=== PATIENT | male | born 1935 | race Caucasian/White ===

== ENCOUNTER → 2017-12-13 | Outpatient (CLI) | payer OTHER ==
[~2017-12-13] MED LIST: ATORVASTATIN CA40 MG PO; AUGMENTIN 875875 MG PO; CARDIZEM CD120 MG PO; CARDIZEM CD240 MG PO; CARVEDILOL12.5 MG PO; COMBIVENT INH; COMBIVENT RESPIM4 GM INH; COUMADIN 1MG TAB1 M1 PO; COUMADIN 5 MG TA5 M1 PO; DIGOXIN250 MCG PO; GLYBURIDE 2.52.5 MG PO; LISINOPRIL10 MG PO; LOPRESSOR25 PO; METFORMIN HCL500 MG PO; PACERONE 200 M200 M1 PO; PRADAXA150 MG PO; PRILOSEC20 MG PO; PROAIR HFA8.5 GM INH; SORINE 80 MG TA80 M1 PO; SOTALOL 120 MG120 M1 PO; TIKOSYN.25 PO
== END ==
LOC: M.RAD 14:01
DX: M19.071 Primary osteoarthritis, right ankle and foot (principal); L03.115 Cellulitis of right lower limb; I10 Essential (primary) hypertension; E78.00 Pure hypercholesterolemia, unspecified

== ENCOUNTER 2019-12-11 14:33 | Emergency (ER) | payer MEDICARE ==
[~2019-12-11] VITALS: Ht 190.5 cm; Wt 90.7 kg
[2019-12-11] MEDS ORDERED: LANOXIN 0.25M0.25 M1 PO (15:01)
[2019-12-11] MEDS ORDERED: LOPRESSOR50 MG PO (15:01)
[2019-12-11] MEDS ORDERED: LIPITOR40 MG PO (15:02)
[2019-12-11 15:32] LABS: HEMATOCRIT 45.5 % (42.0-52.0); HEMOGLOBIN 15.9 gm/dL (14.0-18.0); MCH 33.7 pg (26.0-34.0); MCHC 34.9 g/dL (28.0-37.0); MCV 96.6 fL (80.0-100.0); MPV 7.9 fl. (7.2-11.1); NUCLEATED RBCS 0 /100WBC; PLATELET COUNT* 245 thou/uL (150-400); RBC 4.71 mil/uL (4.50-6.00); RDW-CV 14.3 % (10.5-14.5); WBC 9.5 thou/uL (4.0-11.0)
[2019-12-11 15:45] LABS: CALCIUM 9.1 mg/dL (8.5-10.1); CREATININE 1.3 mg/dL (0.6-1.3); POTASSIUM 4.8 mmol/L (3.5-5.1)
[2019-12-11 15:51] LABS: ALBUMIN 3.2 g/dL (3.4-5.0); TOTAL BILIRUBIN 0.5 mg/dL (<0.1-1.0); TOTAL PROTEIN 6.5 g/dL (6.4-8.2)
[2019-12-11 16:09] LABS: ABSOLUTE EOSINOPHILS 0.1 thou/uL (0.0-0.7); ABSOLUTE LYMPHOCYTES 1.8 thou/uL (0.8-5.3); ABSOLUTE MONOCYTES 0.9 thou/uL (0.0-1.2); ABSOLUTE NEUTROPHILS 6.7 thou/uL (1.6-8.1); ATYPICAL LYMPHS 2 %
[2019-12-11 16:10] LABS: PLATELET ESTIMATE ADEQUATE
[2019-12-11 17:26] LABS: URINE BILIRUBIN NEGATIVE (Negative); URINE BLOOD 3+ (Negative); URINE CLARITY CLEAR; URINE COLOR YELLOW; URINE GLUCOSE-RANDOM NEGATIVE (Negative); URINE KETONES NEGATIVE (Negative); URINE NITRITE-REFLEX NEGATIVE (Negative); URINE PROTEIN NEGATIVE (Negative); URINE UROBILINOGEN 0.2 E.U./dl (0.2-1.0)
[2019-12-11 17:27] LABS: URINE LEUKOCYTES-REFLEX 2+ (Negative)
[2019-12-11 17:34] LABS: HYALINE CASTS >10 Many /LPF (None Seen); URINE RBC >20 Many /HPF (0-2)
[2019-12-11 17:36] LABS: BACTERIA-REFLEX 1-9 Few /HPF (None Seen); CALCIUM OXALATE 0-3 Few /LPF (None Seen); MUCUS None Seen strn/LPF (None Seen); SQUAMOUS NONE SEEN /LPF (0-3)
[2019-12-11] MEDS ORDERED: DOXYCYCLINE 10100 MG PO (17:59)
[2019-12-11] MEDS ORDERED: PROAIR HFA8.5 GM INH (17:59)
[2019-12-11 18:26] VITALS: BP 142/88
--- NOTE | 2019-12-12 11:03 | EKG ---
[place] [address] ELECTROCARDIOGRAM REPORT Name: TRICIA WINTERS Room: [facility]#: [id number] Admission: 12/11/19 Attend Phys: Discharge: 12/11/19 Date of : 37 Date of Service: 12/11/19 1615 Report #: [id number] THIS REPORT FOR: //name// [facility] ED Test Date: 2019-12-11 Test Time: 16:15:06 Pat Name: TRICIA WINTERS Department: Room: Gender: Log Grader: : 1935 Requested By: Tony Newell Order Number: [id number] MD: Johnie Harley Measurements Intervals [place] Rate: 68 P: MT: QRS: 17 QRSD: 92 T: -57 QT: 359 QTc: 382 Interpretive Statements Atrial fibrillation with intermittent V-paced complexes Anteroseptal infarct, old, possible Low voltage, extremity leads Minimal ST depression, inferior leads Compared to ECG 08/27/2015 09:36:54 ST (T wave) deviation now present Atrial-paced complex(es) or rhythm no longer present Electronically Signed On 12-12-2019 11:02:09 CDT by Johnie Harley [email or web address] <ELECTRONICALLY SIGNED> By: Johnie Harley MD, FACC 12/12/19 1102 1615 1615 Johnie Harley MD, [facility] /EPI
== END 2019-12-11 18:28 | disposition home or self-care (01) ==
LOC: M.ERS 14:33
PROVIDERS: Physician Assistant
DX: J18.8 Other pneumonia, unspecified organism (principal); N39.0 Urinary tract infection, site not specified; R42 Dizziness and giddiness; I10 Essential (primary) hypertension; I48.91 Unspecified atrial fibrillation; E11.9 Type 2 diabetes mellitus without complications; E78.5 Hyperlipidemia, unspecified; Z86.73 Personal history of transient ischemic attack (TIA), and cerebral infarction without residual deficits; Z87.891 Personal history of nicotine dependence

== ENCOUNTER → 2020-01-03 | Outpatient (CLI) | payer MEDICARE ==
[~2020-01-03] MED LIST changes: +DOXYCYCLINE 10100 MG PO; +LANOXIN 0.25M0.25 M1 PO; +LIPITOR40 MG PO; +LOPRESSOR50 MG PO
== END ==
LOC: M.CT 12:33
DX: R91.8 Other nonspecific abnormal finding of lung field (principal); J98.4 Other disorders of lung

== ENCOUNTER → 2020-06-20 | Outpatient (CLI) | payer MEDICARE | LOC: M.ULTRA 11:30 | PROVIDERS: ATTEND Family Medicine | DX: E07.9 Disorder of thyroid, unspecified (principal); R53.82 Chronic fatigue, unspecified ==

== ENCOUNTER → 2020-07-18 | Outpatient (CLI) | payer MEDICARE ==
--- NOTE | 2020-08-07 10:07 | PATH ---
[address] [address] PATHOLOGY RPT PROCEDURE Name: SINGHTRICIA L [id number] Admission: 07/18/20 Date of : 37 Discharge: Report #: [id number] Path Case #: [id number] Note [facility] Accession Number: [id number] TESTS RESULT FLAG UNITS REF RANGE LAB Source: THYROID NODULE DIAGNOSIS: THYROID NODULE, IMAGE-GUIDED FNA: [place] CATEGORY III. FOLLICULAR LESION OF UNDETERMINED SIGNIFICANCE. SPECIMEN CONSISTS OF ABUNDANT FOLLICULAR CELLS WITH OCCASIONAL MICROFOLLICULAR FORMATION AND MINIMAL COLLOID. SEE COMMENT. THIS INTERPRETATION INCLUDES EVALUATION OF A CELL BLOCK. COMMENT: A RETAIN RNA SPECIMEN WILL BE SUBMITTED FOR MOLECULAR ANALYSIS AND WILL BE THE SUBJECT OF A SUBSEQUENT REPORT. Pathologist ICD10: 02 D34 Addendum: 02 Special studies report received from [facility], [address] [place] [address], on case [id number], labeled with their number [id number], dated 08/05/2020. . RESULTS SUMMARY Nodule Cytopathology ThyGeNEXT ThyraMIR Left Thyroid FNA AUS/FLUS (B-III) No mutations Detected Negative . . INTERPRETATION AND RISK ASSESSMENT Left Thyroid FNA Cytology Dx B-III ThyGeNEXT No Mutations Detected ThyraMIR Negative 5% Risk of Malignancy . *Risk assessment is based on disease prevalence of associated cytology diagnosis, mutational changes, microRNA expression, clinical experience, submitted manuscript and associated senior telecommunications engineer/platform presentation "The Utility of Combined Mutations and microRNA Expression Profiling in Assessing Cancer Risk in Thyroid Nodules", [employer] Annual Meeting, June 2017 in addition to clinical validation(1)(See Test Result Interpretation section) . TEST RESULT INTERPRETATION Left Thyroid FNA . Nodule is very highly likely benign. . Thyroid nodules showing [place] Diagnostic Category III (AUS/FLUS) cytology with negative ThyGeNEXT and negative ThyraMIR status are highly likely to be benign (91-97% likelihood of being benign) (1,2). [place] [address] PATHOLOGY RPT PROCEDURE Name: TRICIA WINTERS Room: [facility]#: [id number] Admission: 07/18/20 Date of : 37 Discharge: Report #: [id number] Path Case #: [id number] likelihood for benign disease, continued surveillance can be a suitable management approach. Actual management may depend on other factors such as overall clinical findings besides integrated molecular interpretation alone. . This test detects only the mutations listed below. While these mutations are present in up to 70% of thyroid cancers, other rare mutations associated with thyroid cancer may be present but not detected. Because thyroid nodular disease can contain multifocal areas of heterogeneous pathology, sampling variation may occasionally result in under diagnosis of existing pathology. All decision factors, including ultrasound results, nodule size, patient history and cytology results need to be taken into account when determining treatment. . 1. Ambar Coates et al, Molecular testing of Josie, mRNA and DNA on fine needle aspiration improves the preoperative diagnosis of thyroid nodules with indeterminate cytology, Journal of Clinical Endocrinology and Metabolism, 100(7), March 2015, [id number] 2. Zhen Mike and Janelle Conde, The utility of combined mutation analysis and microRNA classification in reclassifying cancer risk of cytologically indeterminate thyroid nodules, Diagnostic Cytopathology. 2018:1-7 . . . REGULATORY The ThyGeNEXT Thyroid Oncogene Panel provides PCR-based enrichment from fine-needle aspiration biopsies of thyroid nodules and next-generation sequencing (NGS) DNA and RNA analysis. The DNA analysis interrogates 10 genes relevant to thyroid carcinoma, including BRAF, TERT, ALK, RET, PTEN, HRAS, KRAS, NRAS, GNAS, PIK3CA, and 38 RNA fusion transcripts including PAX8/PPARgamma, RET/PTC, and various fusion partners of ALK, RET, BRAF, NTRK, and THADA. Duplicate PCR enrichment was performed using custom oligonucleotide primers with analysis on a MiSeq platform ([employer]). . The analytical sensitivity of this assay is at least 3% for mutant DNA and at least 5% of RNA translocations in a background of wild-type genomic DNA and RNA, respectively. The reporting range is at least 5% for DNA variants, with the exception that the reporting range for BRAF V600E mutation is at least 3%. For the ThyGeNEXT panel, the overall, clinical sensitivity for this analysis is 63% and the specificity is 84% in cases with indeterminant cytology. . The ThyraMIR Josie Tire Design Engineer is a microRNA (Josie) based discriminator of benign versus malignant disease using mathematical algorithm of 10 specific microRNAs trained and validated using thyroid nodules with known outcome. For the needle aspirates in preservative solution, this assay requires a minimum of RNA equivalent to that for ThyGenX (1000 relative fluorescent units of housekeeping RNA genes). Discrimination can be affected by admixture with blood and normal RNA sources [place] [address] PATHOLOGY RPT PROCEDURE Name: TRICIA WINTERS Room: [facility]#: [id number] Admission: 07/18/20 Date of : 37 Discharge: Report #: [id number] Path Case #: [id number] to be operative within the range of admixture typically encountered in sampling of thyroid nodule disease. . The combined testing platform of ThyGenX with ThyraMIR has a clinical sensitivity of 95% (95% CI, 86%-99%) and specificity of 90% (95% CI, 84%-95%) for cases in prevalence adjusted nodules with [place] III and IV indeterminate cytology diagnosis (Diagnostic Cytopathology April 12). The clinical validation is based on a blinded, multicenter study using consensus histopathology diagnosis among three pathologists. Archival cytology slides from nonconsecutive subjects with indeterminate cytology were analyzed. Combined ThyGeNEXT with ThyraMIR ruled out cancer with 97% negative predictive value at 97% negative predictive value at 30% cancer prevalence while ruling in high risk disease with 75% positive predictive value. Such results are expected in four of five [place] III and IV nodules tested including LASHELL positive nodules. . Testing performed on material created for microscopic evaluation (cytology slide smears, cell block, or thin prep), depending on cellularity and extractable nuclei acid, may have similar or slightly lower test performance characteristics to that stated above. . . DISCLAIMER: This test was developed and its performance characteristics determined by [facility]. It has not been cleared or approved by the FDA. The laboratory is regulated under CLI as qualified to perform high-complexity testing and is used for clinical purposes. A negative result does not indicate a benign result. This test detects only the mutations listed above, which account for >80% of thyroid cancers. Other, rare mutations, that may be indicative of cancer may not be detected by this test. In addition, about 30% of thyroid cancers have no known genetic alterations and/or mutations. . Interpreted By Electronically verified by Brittney Mata MD Date: 18:10:49 EST . Brittney Mata MD Stage Electrician Helper . A complete copy of the report is on file. . Professional and Technical services performed by [facility], [address] [place] [address]. . (JUAN LUIS:bryn 08/06/2020) . AZJ/08/06/2020 Addendum Electronically Signed by Dhruv Escobedo MD, [place] [address] PATHOLOGY RPT PROCEDURE Name: TRICIA WINTERS Room: [facility]#: [id number] Admission: 07/18/20 Date of : 37 Discharge: Report #: [id number] Path Case #: [id number] Signed out by: 02 Dhruv Escobedo MD, Pathologist NPI- [id number] Performed by: Shayne Gonzales, Survey Analyst ([facility]) Gross description: 01 20ML, RED, 4FX 4AD /LCS 07/18/2020 1645 Local FLAG LEGEND: L-Low Normal,H-High Normal,LL-Alert Low,HH-Alert High <-Panic Low,>-Panic High,A-Abnormal,AA-Critical Abnormal Performed at: [address] [place] [address] Ryan Sainz MD, [address] [place] [address] [address] [place] [address] Dhruv Escobedo MD, Performed at: [address], [place], [place] [id number] MD Ryan Sainz MD Phone: [phone]
== END | disposition home or self-care (01) ==
LOC: M.ULTRA 07-11 08:30
PROVIDERS: ATTEND Family Medicine
DX: E04.1 Nontoxic single thyroid nodule (principal); I48.92 Unspecified atrial flutter; Z98.890 Other specified postprocedural states; Z79.899 Other long term (current) drug therapy; Z79.01 Long term (current) use of anticoagulants